=== PATIENT | female | born 1990 | race Hispanic/Latino ===

== ENCOUNTER → 2018-12-02 | Outpatient (CLI) | payer BC ==
--- NOTE | 2018-12-02 08:38 | Diagnostic Imaging Report ---
EXAM: CT Abdomen and Pelvis WITHOUT contrast INDICATION: Kidney stone COMPARISON: None. TECHNIQUE: Abdomen and pelvis were scanned utilizing a multidetector helical scanner from the lung base to the pubic symphysis without administration of IV contrast. Absence of intravenous contrast decreases sensitivity for detection of focal lesions and vascular pathology. Coronal and sagittal reformations were obtained. Renal stone protocol was performed. Dose modulation, iterative reconstruction, and/or weight based adjustment of the mA/kV was utilized to reduce the radiation dose to as low as reasonably achievable. IV CONTRAST: None. ORAL CONTRAST: None RADIATION DOSE: Total DLP: 233.37 mGy*cm Estimated effective dose: (DLP x 0.015 x size factor) mSv COMPLICATIONS: None FINDINGS: LINES and TUBES: None. LOWER THORAX: Lung bases clear. Calcified granuloma seen in the right middle lobe. Heart size normal. HEPATOBILIARY: No focal hepatic lesions. No biliary ductal dilation. GALLBLADDER: No radio-opaque stones or sludge. No wall thickening. SPLEEN: No splenomegaly. PANCREAS: No focal masses or ductal dilatation. ADRENALS: No adrenal nodules KIDNEYS/URETERS: The [place] kidneys are markedly atrophic bilaterally. 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 Multiple densities along the path of the transplant ureter are apparent surgical clips. There is mild fullness of the transplant collecting system with no linda hydronephrosis. No contour deforming cystic or solid mass lesions. No stones. GI TRACT: No abnormal distention, wall thickening, or evidence of bowel obstruction. There is moderate retained stool throughout the colon which may be seen with constipation. Appendix is normal. PELVIC ORGANS/BLADDER: Urinary bladder appears unremarkable. The uterus is retroverted. No discrete abnormal mass or fluid collection in the pelvis. LYMPH NODES: No dominant lymph node mass is seen in the abdomen, retroperitoneum or pelvis. VESSELS: Unenhanced abdominal aorta and IVC unremarkable. PERITONEUM / RETROPERITONEUM: No pneumoperitoneum or ascites. BONES: No acute or suspicious bony lesions. SOFT TISSUES: Superficial surrounding soft tissue unremarkable. IMPRESSION: 1. [place] kidneys are markedly atrophic. There is a renal transplant in the left pelvis. No calculus seen. There is mild fullness of the renal collecting system with no hydronephrosis. 2. No CT evidence for acute abdominal or pelvic pathology. Staff: Melinda Signed by: Dr. Gui Lawrence M.D. on 12/02/2018 8:35 AM
== END ==
LOC: CT 06:50
PROVIDERS: ATTEND Urology
DX: N20.0 Calculus of kidney (principal)
CPT/HCPCS: 74176